=== PATIENT | female | born 1995 | race African-American/Black ===

== ENCOUNTER 2021-02-01 03:05 | Emergency (ER) | payer OTHER, MEDICAID ==
[~2021-02-01] VITALS: Ht 160 cm; Wt 73.0 kg
[2021-02-01 03:15] VITALS: BP 127/74
== END 2021-02-01 05:45 | disposition left against medical advice (07) ==
LOC: ER 03:05
DX: Z53.21 Procedure and treatment not carried out due to patient leaving prior to being seen by health care provider (principal); I49.9 Cardiac arrhythmia, unspecified
CPT/HCPCS: 93005

== ENCOUNTER 2021-03-27 10:09 | Emergency (ER) | payer MEDICAID, OTHER ==
[~2021-03-27] VITALS: Ht 162.6 cm; Wt 68.0 kg
[2021-03-27 10:13] VITALS: BP 144/63
[2021-03-27] MEDS ORDERED: POLYETHYLENE GLYCOL 3350 (17GM) 1 DOSE PACK PO ONE (10:30)
[2021-03-27] MEDS ORDERED: ACETAMINOPHEN 325MG TABLET PO ONE (10:30)
[2021-03-27 11:12] LABS: BASOPHILS % 0.5 % (0.0-2.0); HEMATOCRIT. 43.4 % (36.0-48.0); HEMOGLOBIN. 14.3 g/dL (12.0-16.0); LYMPHOCYTES % 28.9 % (20.0-50.0); MEAN CORPUSCULAR HEMOGLOBIN 29.4 pg (28.0-32.0); MEAN CORPUSCULAR VOLUME 89.4 fL (81.0-99.0); MEAN PLATELET VOLUME 10.8 fl (7.4-10.4); MONOCYTES % 5.8 % (2.0-8.0); NEUTROPHILS % 63.8 % (40.0-76.0); PLATELET 236 x1000/uL (130-400); RED BLOOD CELL COUNT 4.86 mill/uL (4.2-5.4); RED CELL DISTRIBUTION WIDTH 13.6 % (11.6-14.6)
[2021-03-27 11:13] LABS: CLARITY URINE CLEAR (CLEAR); COLOR URINE YELLOW (YELLOW); KETONES URINE 2+ (NEGATIVE); LEUKOCYTE ESTERASE URINE NEGATIVE (NEGATIVE); NITRITE URINE NEGATIVE (NEGATIVE); OCCULT BLOOD URINE NEGATIVE (NEGATIVE); PH URINE 6.5 (4.5-8.0); PROTEIN URINE TRACE (NEGATIVE); SPECIFIC GRAVITY URINE 1.032 (1.005-1.030)
[2021-03-27] MEDS ORDERED: POLY17PO3 MT (11:17)
[2021-03-27] MEDS ORDERED: ACET-2708 MT (11:17)
[2021-03-27 11:19] LABS: CHLORIDE 108 mEq/L (98-107)
[2021-03-27] MEDS ORDERED: NITR-87 MT (11:32)
== END 2021-03-27 11:57 | disposition home or self-care (01) ==
LOC: ER 10:09
DX: R10.9 Unspecified abdominal pain (principal); K59.00 Constipation, unspecified; R82.71 Bacteriuria; F41.9 Anxiety disorder, unspecified
CPT/HCPCS: 36415; 80053; 81003; 81025; 85025; 99283

== ENCOUNTER 2021-03-31 18:20 | Emergency (ER) | payer MEDICAID ==
[~2021-03-31 18:20] MED LIST: ACET-2708 MT; NITR-87 MT; POLY17PO3 MT
[2021-04-01] MEDS ORDERED: AMOX-424 MT (16:08)
== END 2021-03-31 19:41 | disposition left against medical advice (07) ==
LOC: ER 18:20
DX: H57.10 Ocular pain, unspecified eye (principal); Z53.21 Procedure and treatment not carried out due to patient leaving prior to being seen by health care provider

== ENCOUNTER 2021-04-01 05:11 | Emergency (ER) | payer MEDICAID ==
[~2021-04-01] VITALS: Ht 160 cm; Wt 69.8 kg
[2021-04-01 05:22] VITALS: BP 116/58
[2021-04-01] MEDS ORDERED: AMOX-424 MT (16:08)
== END 2021-04-01 09:29 | disposition left against medical advice (07) ==
LOC: ER 05:11
DX: Z53.21 Procedure and treatment not carried out due to patient leaving prior to being seen by health care provider (principal)

== ENCOUNTER 2021-04-01 11:23 | Emergency (ER) | payer MEDICAID ==
[~2021-04-01] VITALS: Ht 162.6 cm; Wt 68.0 kg
[2021-04-01 11:26] VITALS: BP 129/84
[2021-04-01 14:29] LABS: CLARITY URINE CLOUDY (CLEAR); COLOR URINE YELLOW (YELLOW); KETONES URINE 4+ (NEGATIVE); LEUKOCYTE ESTERASE URINE 1+ (NEGATIVE); NITRITE URINE NEGATIVE (NEGATIVE); OCCULT BLOOD URINE NEGATIVE (NEGATIVE); PROTEIN URINE 1+ (NEGATIVE); SPECIFIC GRAVITY URINE 1.034 (1.005-1.030)
[2021-04-01] MEDS ORDERED: CEFTRIAXONE SODIUM 1 G/VIAL IM ONE (15:15)
[2021-04-01] MEDS ORDERED: CEFTRIAXONE 1 G PREMIX 50 ML IV ONE (15:15)
[2021-04-01] MEDS ORDERED: LIDOCAINE HCL 1% 20ML VIAL (Pyxis) INJ INFIL ONE (15:30)
[2021-04-01] MEDS ORDERED: AMOX-424 MT (16:08)
== END 2021-04-01 16:51 | disposition home or self-care (01) ==
LOC: ER 11:35
DX: N39.0 Urinary tract infection, site not specified (principal)
CPT/HCPCS: 81003; 81025; 87086; 96372; 99283; J0696; J3490

== ENCOUNTER 2021-04-03 18:43 | Emergency (ER) | payer MEDICAID ==
[~2021-04-03 18:43] MED LIST changes: +AMOX-424 MT
== END 2021-04-03 22:04 | disposition left against medical advice (07) ==
LOC: ER 18:43
DX: N39.0 Urinary tract infection, site not specified (principal); Z53.21 Procedure and treatment not carried out due to patient leaving prior to being seen by health care provider

== ENCOUNTER 2021-04-03 23:31 | Emergency (ER) | payer MEDICAID ==
[~2021-04-03] VITALS: Ht 160 cm; Wt 68.4 kg
[2021-04-03 23:45] VITALS: BP 137/89
[2021-04-03] MEDS ORDERED: IBUPROFEN 600MG TABLET PO ONE (23:45)
[2021-04-03] MEDS ORDERED: ONDANSETRON 4MG ODT PO ONE (23:45)
== END 2021-04-04 02:18 | disposition home or self-care (01) ==
LOC: ER 23:31
DX: N39.0 Urinary tract infection, site not specified (principal); Z20.822 Contact with and (suspected) exposure to COVID-19; R63.0 Anorexia; Z68.26 Body mass index [BMI] 26.0-26.9, adult
CPT/HCPCS: 87804; 99283; C9803; Q0162; U0003; U0005

== ENCOUNTER 2021-04-07 10:09 | Emergency (ER) | payer MEDICAID ==
[~2021-04-07] VITALS: Ht 160 cm; Wt 67.7 kg
[2021-04-07] MEDS ORDERED: SODIUM CHLORIDE 0.9% 1,000 ML IV ONE (12:15)
[2021-04-07 12:25] LABS: BASOPHILS % 0.7 % (0.0-2.0); EOSINOPHILS % 1.1 % (0.0-5.0); HEMATOCRIT. 41.1 % (36.0-48.0); HEMOGLOBIN. 14.1 g/dL (12.0-16.0); LYMPHOCYTES % 34.3 % (20.0-50.0); MEAN CORPUSCULAR HEMOGLOBIN 30.2 pg (28.0-32.0); MEAN CORPUSCULAR VOLUME 88.1 fL (81.0-99.0); MEAN PLATELET VOLUME 11.1 fl (7.4-10.4); MONOCYTES % 8.8 % (2.0-8.0); NEUTROPHILS % 55.1 % (40.0-76.0); PLATELET 208 x1000/uL (130-400); RED BLOOD CELL COUNT 4.66 mill/uL (4.2-5.4); RED CELL DISTRIBUTION WIDTH 13.7 % (11.6-14.6)
[2021-04-07 12:30] LABS: CHLORIDE 111 mEq/L (98-107)
[2021-04-07 12:32] LABS: CLARITY URINE CLEAR (CLEAR); COLOR URINE DARK YELLOW (YELLOW); KETONES URINE 1+ (NEGATIVE); LEUKOCYTE ESTERASE URINE TRACE (NEGATIVE); NITRITE URINE NEGATIVE (NEGATIVE); OCCULT BLOOD URINE NEGATIVE (NEGATIVE); PROTEIN URINE TRACE (NEGATIVE); SPECIFIC GRAVITY URINE 1.032 (1.005-1.030); UROBILINOGEN URINE 0.2 E.U./dL (0.2-1.0)
[2021-04-07 12:39] LABS: HCG SCREEN NEGATIVE
[2021-04-07 13:03] LABS: *AMPHETAMINES SCREEN URINE NEGATIVE (NEGATIVE); *BARBITURATES SCREEN URINE NEGATIVE (NEGATIVE)
[2021-04-07 13:04] LABS: *BENZODIAZEPINES SCREEN URINE NEGATIVE (NEGATIVE); *COCAINE SCREEN URINE NEGATIVE (NEGATIVE); METHADONE URINE SCREEN NEGATIVE (NEGATIVE); OPIATES URINE SCREEN NEGATIVE (NEGATIVE); PHENCYCLIDINE URINE SCREEN NEGATIVE (NEGATIVE)
[2021-04-07 13:10] LABS: CANNABINOID URINE SCREEN PRESUMTIVE POSITIVE (NEGATIVE)
[2021-04-07] MEDS ORDERED: CEFTRIAXONE 1 G PREMIX 50 ML IV ONE (14:30)
[2021-04-07 14:42] LABS: MONOTEST NEGATIVE (NEGATIVE)
[2021-04-07] MEDS ORDERED: NITR-87 MT (16:38)
[2021-04-07 16:59] VITALS: BP 112/77
== END 2021-04-07 17:20 | disposition home or self-care (01) ==
LOC: ER 10:09
DX: N39.0 Urinary tract infection, site not specified (principal); Z20.822 Contact with and (suspected) exposure to COVID-19; E86.0 Dehydration
CPT/HCPCS: 36415; 71045; 80053; 80305; 81003; 81025; 83690; 84443; 84703; 85025; 86308; 96361; 96365; 99285; C9803; J0696; J7030; U0003; U0005